=== PATIENT | female | born 1935 | race Caucasian/White ===

== ENCOUNTER → 2017-02-01 | Outpatient (CLI) | payer MEDICARE | END | disposition home or self-care (01) | LOC: GMAB 10:18 | PROVIDERS: ATTEND Family Medicine | DX: E11.9 Type 2 diabetes mellitus without complications (principal); I10 Essential (primary) hypertension; E53.8 Deficiency of other specified B group vitamins ==

== ENCOUNTER → 2017-03-03 | Outpatient (CLI) | payer MEDICARE | END | disposition home or self-care (01) | LOC: GMAB 12:41 | PROVIDERS: ATTEND Family Medicine | DX: D50.9 Iron deficiency anemia, unspecified (principal) ==

== ENCOUNTER → 2017-06-23 | Outpatient (CLI) | payer MEDICARE | END | disposition home or self-care (01) | LOC: GMAB 10:24 | PROVIDERS: ATTEND Family Medicine | DX: D50.9 Iron deficiency anemia, unspecified (principal) ==

== ENCOUNTER → 2017-10-17 | Outpatient (CLI) | payer MEDICARE | END | disposition home or self-care (01) | LOC: GMAB 17:32 | PROVIDERS: ATTEND Family Medicine | DX: N39.0 Urinary tract infection, site not specified (principal) ==

== ENCOUNTER → 2018-01-29 | Outpatient (CLI) | payer MEDICARE | LOC: GMAB 11:32 | PROVIDERS: ATTEND Family Medicine | DX: D50.9 Iron deficiency anemia, unspecified (principal); E53.8 Deficiency of other specified B group vitamins; E11.9 Type 2 diabetes mellitus without complications; I10 Essential (primary) hypertension ==

== ENCOUNTER → 2018-06-27 | Outpatient (CLI) | payer MEDICARE | LOC: GMAE 12:07 | PROVIDERS: ATTEND Family Medicine | DX: D50.9 Iron deficiency anemia, unspecified (principal); E53.8 Deficiency of other specified B group vitamins ==

== ENCOUNTER 2019-01-19 18:52 | Emergency (ER) | payer MEDICARE ==
[2019-01-19] MEDS ORDERED: IBUPROFEN 200 MG TAB PO ONE (19:20)
[2019-01-19] MEDS ORDERED: OSELTAMIVIR 75 MG CAP PO ONE (19:23)
--- NOTE | 2019-01-19 19:44 | RAD ---
EXAM DESCRIPTION: Chest,2 Views CLINICAL HISTORY: 83 years Female cough, fever COMPARISON: 10/17/2017. FINDINGS: The cardiomediastinal silhouette appears unremarkable. There are mitral annular calcifications. Atherosclerotic calcifications in the thoracic aorta. No consolidating infiltrates or pleural effusions. No pneumothorax. IMPRESSION: No acute abnormality is identified. Electronically signed by: Rohith Squires MD 01/19/2019 7:41 PM [employer]
[2019-01-19] MEDS ORDERED: AMOXICILLIN & POT CLAVULANATE 875 MG TAB PO ONE (19:47)
[2019-01-19] MEDS ORDERED: AZITHROMYCIN 250 MG TAB PO ONE (19:49)
--- NOTE | 2019-01-19 19:50 | ED.PDOC ---
History of Present Illness - General Chief Complaint: Respiratory Problem Stated Complaint: fever, cough Time Seen by Provider: 01/19/19 19:02 Source: patient Exam Limitations: no limitations - History of Present Illness Initial Comments: The patient is an 83-year-old female presenting to the emergency room secondary to runny nose or throat cough headache generalized body aches the last 24 hours. She has been exposed to multiple children with influenza. She has not been on any prophylaxis. She actually just completed a course of amoxicillin 2 days ago for an infected tooth. No respiratory distress. No hypoxia. She does have a fever. Timing/Duration: 24 hours Severity: moderate Improving Factors: nothing Worsening Factors: nothing Associated Symptoms: cough, fever/chills, malaise Allergies/Adverse Reactions: Allergies NO KNOWN ALLERGY Allergy (Verified 01/19/19 19:00) Home Medications: Ambulatory Orders Aspirin [Aspirin EC] 81 mg PO DAILY 01/19/19 Azithromycin 500 mg PO DAILY #5 tab 01/19/19 Lisinopril 10 mg PO DAILY 01/19/19 Metformin HCl [Metformin HCl ER] 500 mg PO DAILY 01/19/19 Metoprolol Succinate [Metoprolol Succinate ER] 100 mg PO DAILY 01/19/19 Multiple Vitamin [Ocuvite] 1 ea PO DAILY 01/19/19 Oseltamivir Capsule [Tamiflu] 75 mg PO BID 5 Days #10 capsule 01/19/19 Simvastatin 20 mg PO DAILY 01/19/19 Review of Systems - Review of Systems Constitutional: States: chills, fever, malaise EENTM: States: nose congestion, throat pain Respiratory: States: cough. Denies: short of breath, stridor, wheezing Cardiology: States: no symptoms reported Gastrointestinal/Abdominal: States: no symptoms reported Genitourinary: States: no symptoms reported Musculoskeletal: States: see HPI - generalized myalgias Skin: States: no symptoms reported Neurological: States: headache Endocrine: States: no symptoms reported All other Systems: No Change from Baseline Past Medical History (General) - Patient Medical History Hx Seizures: No Hx Stroke: No Hx Dementia: No Hx of COPD: No Hx Cardiac Disorders: Yes - stent placement Hx Congestive Heart Failure: No Hx Hypertension: Yes Hx Thyroid Disease: No Hx Diabetes: Yes Hx Gastroesophageal Reflux: Yes Surgical History: appendectomy, Hysterectomy, other - Vaccination History Hx Influenza Vaccination: Yes Hx Pneumococcal Vaccination: Yes - Female History Patient is a Female of Child Bearing Age (10 -59 yrs old): No Family Medical History - Family History Mother Family History: Unknown Physical Exam - Physical Exam General Appearance: Alert, Comfortable, No apparent distress Eye Exam: bilateral normal Ears, Nose, Throat: hearing grossly normal, nasal congestion, pharyngeal erythema Neck: full range of motion, supple Respiratory: lungs clear, normal breath sounds, no respiratory distress, no accessory muscle use Cardiovascular/Chest: normal peripheral pulses, no edema, tachycardia Peripheral Pulses: radial,right: 2+, radial,left: 2+ Gastrointestinal/Abdominal: non tender, soft Rectal Exam: deferred Back Exam: no CVA tenderness, no vertebral tenderness Extremity: normal range of motion, non-tender, normal inspection, no pedal edema, normal capillary refill 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 She tested negative here on a rapid test however she lives in a household where multiple other people have tested positive for the flu. She is going to be covered with Desirae flu and azithromycin both given her age group, and the fact of a negative rapid flu test. She needs to keep herself well hydrated. Motrin 400 mg every 8 hours can be taken to reduce fever and body aches. ER warnings were given for any worsening. No evidence of any hypoxia or respiratory distress. Follow-up with primary care doctor next week. Departure - Departure Clinical Impression: Flu-like symptoms Disposition: Discharge to Home or Self Care Condition: Fair Departure Forms: ED Discharge - Pt. Copy, Patient Portal Self Enrollment Instructions: Flu, Adult (DC) Diet: regular diet Activity: increase activity as tolerated Referrals: DAKOTA DUNN MD [Primary Care Provider] - 1-5 Days Prescriptions: Azithromycin 500 mg PO DAILY #5 tab Oseltamivir Capsule [Tamiflu] 75 mg PO BID 5 Days #10 capsule Home Medications: Ambulatory Orders Aspirin [Aspirin EC] 81 mg PO DAILY 02/23/19 Azithromycin 500 mg PO DAILY #5 tab 01/19/19 Lisinopril 10 mg PO DAILY 01/19/19 Metformin HCl [Metformin HCl ER] 500 mg PO DAILY 01/19/19 Metoprolol Succinate [Metoprolol Succinate ER] 100 mg PO DAILY 01/19/19 Multiple Vitamin [Ocuvite] 1 ea PO DAILY 01/19/19 Oseltamivir Capsule [Tamiflu] 75 mg PO BID 5 Days #10 capsule 01/19/19 Simvastatin 20 mg PO DAILY 01/19/19 Additional Instructions: the patient is an 83-year-old female presenting to emergency room with symptoms that are actually most consistent with influenza. She tested negative here on a rapid test however she lives in a household where multiple other people have tested positive for the flu. She is going to be covered with Tamiflu and azithromycin both given her age group, and the fact of a negative rapid flu test. She needs to keep herself well hydrated. Motrin 400 mg every 8 hours can be taken to reduce fever and body aches. ER warnings were given for any worsening. No evidence of any hypoxia or respiratory distress. Follow-up with primary care doctor next week. The patient should also hold her simvastatin for 1 week.
[2019-01-19 20:07] VITALS: BP 116/53; TEMP 100.5; O2SAT 99
== END 2019-01-19 20:07 | disposition home or self-care (01) ==
LOC: ER 18:52
DX: J11.1 Influenza due to unidentified influenza virus with other respiratory manifestations (principal); K21.9 Gastro-esophageal reflux disease without esophagitis; I10 Essential (primary) hypertension; I51.9 Heart disease, unspecified; E11.9 Type 2 diabetes mellitus without complications; Z95.5 Presence of coronary angioplasty implant and graft; Z79.899 Other long term (current) drug therapy; Z79.82 Long term (current) use of aspirin
CPT/HCPCS: 71046; 87502; Q0144

== ENCOUNTER → 2019-03-05 | Outpatient (CLI) | payer MEDICARE | LOC: GMAE 10:30 | PROVIDERS: ATTEND Family Medicine | DX: I10 Essential (primary) hypertension (principal) ==

== ENCOUNTER → 2020-03-19 | Outpatient (CLI) | payer MEDICARE | LOC: GMAE 11:33 | PROVIDERS: ATTEND Family Medicine | DX: I10 Essential (primary) hypertension (principal); E77.9 Disorder of glycoprotein metabolism, unspecified; E78.2 Mixed hyperlipidemia ==

== ENCOUNTER 2020-08-28 08:09 | Observation (INO) | payer MEDICARE ==
[2020-08-28] MEDS ORDERED: ASPIRIN (CHEWABLE) 81 MG TAB ONE (08:18)
[2020-08-28] MEDS ORDERED: ONDANSETRON INJ 4 MG/2 ML VIAL IV ONE (08:21)
[2020-08-28] MEDS ORDERED: SODIUM CHLORIDE 0.9% (FLUSH) 10 ML SYG IV PRN ×2 (08:21→12:35)
[2020-08-28] MEDS ORDERED: ASPIRIN (CHEWABLE) 81 MG TAB PO ONE (08:25)
[2020-08-28] MEDS: NITROGLYCERIN 0.4 MG 25 EA TAB SL ONE ×2 (08:30→08:44)
--- NOTE | 2020-08-28 08:30 | ED.PDOC ---
History of Present Illness - General Chief Complaint: Chest Pain/AK Stated Complaint: chest pain Time Seen by Provider: 08/28/20 08:18 Source: patient - History of Present Illness Initial Comments: ONSET AT 0300, Severity/Quality: other - 04/05 Location: substernal Chest Pain Radiation: arms - LEFT ARM Activities at Onset: rest Prior Chest Pain/Cardiac Workup: cardiac cath - 10+ YEARS AGO, [employer] Improving Factors: nothing Worsening Factors: nothing Nitro Today/Relief: no nitro taken today Aspirin Treatment Today: no aspirin today Associated Symptoms: denies symptoms Allergies/Adverse Reactions: Allergies NO KNOWN ALLERGY Allergy (Verified 01/19/19 19:00) Home Medications: Ambulatory Orders Aspirin [Aspirin EC] 81 mg PO DAILY 01/19/19 Lisinopril 10 mg PO DAILY 01/19/19 Metformin HCl [Metformin HCl ER] 500 mg PO DAILY 01/19/19 Metoprolol Succinate [Metoprolol Succinate ER] 100 mg PO DAILY 01/19/19 Multiple Vitamin [Ocuvite] 1 ea PO DAILY 01/19/19 Simvastatin 20 mg PO DAILY 01/19/19 Review of Systems - Review of Systems Constitutional: Denies: no symptoms reported, chills, fever EENTM: States: no symptoms reported. Denies: throat pain Respiratory: States: no symptoms reported. Denies: short of breath Gastrointestinal/Abdominal: States: no symptoms reported. Denies: nausea Genitourinary: States: no symptoms reported Musculoskeletal: States: no symptoms reported Skin: States: no symptoms reported Neurological: States: no symptoms reported Endocrine: States: no symptoms reported Hematologic/Lymphatic: States: no symptoms reported Past Medical History (General) - Patient Medical History Hx Seizures: No Hx Stroke: No Hx Dementia: No Hx of COPD: No Hx Cardiac Disorders: Yes - stent placement Hx Congestive Heart Failure: No Hx Hypertension: Yes Hx Thyroid Disease: No Hx Diabetes: Yes Hx Gastroesophageal Reflux: Yes Surgical History: Hysterectomy - Vaccination History Hx Influenza Vaccination: Yes - 2019 Hx Pneumococcal Vaccination: Yes - Social History Hx Tobacco Use: No Family Medical History - Family History Mother Family History: Unknown Physical Exam - Physical Exam General Appearance: Alert, Comfortable, Well Developed, Well Groomed, Well Hydrated, Well Nourished Neck: non-tender, full range of motion, supple Respiratory: chest non-tender, lungs clear, normal breath sounds, no respiratory distress Cardiovascular/Chest: normal peripheral pulses, regular rate, rhythm, no edema, no gallop, no JVD, no murmur Peripheral Pulses: radial,right: 2+, radial,left: 2+, posterior tibialis,right: 2+, posterior tibialis,left: 2+ Gastrointestinal/Abdominal: normal bowel sounds, non tender, soft, no organomegaly Extremity: non-tender, normal inspection, no pedal edema, no calf tenderness 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 SUBTLE ST DEPRESSION II, III,?AVF. NO STEMI, #2. 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 Copy, Patient Portal Self Enrollment Instructions: DI for Chest Pain Referrals: DAKOTA DUNN MD [Primary Care Provider] - 1-2 Weeks Home Medications: Ambulatory Orders Aspirin [Aspirin EC] 81 mg PO DAILY 01/19/19 Lisinopril 10 mg PO DAILY 01/19/19 Metformin HCl [Metformin HCl ER] 500 mg PO DAILY 01/19/19 Metoprolol Succinate [Metoprolol Succinate ER] 100 mg PO DAILY 01/19/19 Multiple Vitamin [Ocuvite] 1 ea PO DAILY 01/19/19 Simvastatin 20 mg PO DAILY 01/19/19 Decision To Admit - Decistion To Admit Decision to Admit Reason: Medical Nature - CHEST PAIN OF POSSIBLE CARDIAC ORIGIN Decision to Admit Date: 08/28/20 Decision to Admit Time: 11:02 - DISCUSSED WITH MARCELA MANNING, WILL ADMIT FOR OBSERVATION.
--- NOTE | 2020-08-28 09:02 | RAD ---
EXAM DESCRIPTION: Chest,1 View CLINICAL HISTORY: 85 years Female, chest pain COMPARISON: 01/19/2019 TECHNIQUE: Single view radiograph of the chest. IMPRESSION: Normal size cardiac silhouette. Partially calcified aorta. Right greater than left scattered basal atelectasis. No pleural effusion or pneumothorax. Thoracic spondylosis with ex curvature of the midthoracic spine as before. Moderate right shoulder arthropathy. Electronically signed by: Wilver Grove MD 08/28/2020 9:01 AM CDT
[2020-08-28] MEDS ORDERED: NITROGLYCERIN 0.4 MG 25 EA TAB SL PRN (12:35)
[2020-08-28] MEDS ORDERED: ACETAMINOPHEN 325 MG TAB PO PRN (12:35)
[2020-08-28] MEDS ORDERED: MORPHINE SULFATE INJ 10 MG/ML VIAL IV PRN (12:35)
[2020-08-28] MEDS ORDERED: IV SET AND CAP CHANGE INJ INJ SCH (13:00)
[2020-08-28] MEDS ORDERED: METOPROLOL SUCCINATE XL 50 MG TAB PO ONE (15:02)
[2020-08-28] MEDS ORDERED: SIMVASTATIN 20 MG TAB ONE (18:54)
[2020-08-28] MEDS ORDERED: ENOXAPARIN SODIUM 40 MG/0.4 ML SYG SUBCU ONE (18:54)
[2020-08-28] MEDS: SODIUM CHLORIDE 0.9% (FLUSH) 10 ML SYG IV SCH (20:25)
[2020-08-28] MEDS ORDERED: SIMVASTATIN 20 MG TAB PO SCH (21:00)
[2020-08-28] MEDS ORDERED: ENOXAPARIN SODIUM 40 MG/0.4 ML SYG SUBCU SCH (21:00)
[2020-08-29] MEDS ORDERED: NITROGLYCERIN 0.2 MG/HR PATCH TD ONE ×2 (02:52→02:56)
[2020-08-29] MEDS ORDERED: PANTOPRAZOLE SODIUM TAB 40 MG PO ONE (05:21)
[2020-08-29] MEDS ORDERED: PANTOPRAZOLE SODIUM TAB 40 MG PO SCH (06:30)
[2020-08-29] MEDS ORDERED: METOPROLOL SUCCINATE XL 100 MG TAB PO SCH (09:00)
[2020-08-29] MEDS ORDERED: ASPIRIN TABLET 325 MG TAB PO SCH (09:00)
[2020-08-29] MEDS ORDERED: ASPIRIN (ENTERIC COATED) 81 MG TAB PO SCH (09:00)
[2020-08-29] MEDS ORDERED: metFORMIN XR 500 MG TAB.ER.24 PO SCH (09:00)
[2020-08-29] MEDS ORDERED: LISINOPRIL 10 MG TAB PO SCH (09:00)
[2020-08-29] MEDS: SODIUM CHLORIDE 0.9% (FLUSH) 10 ML SYG IV SCH (09:59)
[2020-08-29 14:27] VITALS: BP 120/61; TEMP 98.3; O2SAT 98
--- NOTE | 2020-09-03 13:52 | SSS ---
SUPERVISING PHYSICIAN: Dorcas Miguel MD DATE OF ADMISSION: 08/28/20 DATE OF DISCHARGE: 08/29/20 DISCHARGE DIAGNOSIS; 1. Chest pain, rule out acute coronary syndrome with multiple elevated troponins outside of the three troponins on the chest pain guidelines. There were no other signs and symptoms of myocardial infarction. 2. Coronary artery disease. 3. Diabetes mellitus, type 2. 4. Hyperlipidemia. 5. Gastroesophageal reflux disease. HISTORY OF PRESENT ILLNESS: This is an 85-year-old female patient who presented to the Emergency Room with complaints of midsternal chest pain. Most of the pain was substernal and radiated to the left arm. 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 There were no other significant symptoms. After she presented to the Emergency Room, her chest pain was alleviated. Her initial vital signs were temperature 97, heart rate 87, blood pressure 121/74, respiratory rate 16, O2 saturation 94%. Her labs showed a CBC that was unremarkable with a chemistry that showed her electrolytes to be within normal limits. Glucose was elevated at 225. Her creatinine kinase was 99, CK-MB 3, troponin less than 0.02. BNP 38.1. Two hours after her initial cardiac enzymes, her troponin was less than 0.02. There were no changes on her EKG and she was admitted to the hospital in stable condition. HOSPITAL COURSE: The patient has no further complaints of chest pain. It is to be noted that her third cardiac enzymes went up to 0.09 and a subsequent one went up to 0.14. There were no complaints of chest pain, nor were there any changes on her EKG. It was normal sinus rhythm on the monitor. She then had a series of troponins that were completed. They did start to trend down, at 0.13, 0.11 and 0.1 respectively. The following morning, her laboratory was unremarkable and after discussing with her primary care physician, Dr. Miguel, an echocardiogram was ordered and she will be discharged home in stable condition. PAST MEDICAL HISTORY: 1. Coronary artery disease. 2. Diabetes mellitus, type 2. 3. Gastroesophageal reflux disease. 4. Hyperlipidemia. 5. Pernicious anemia. PAST SURGICAL HISTORY: None. ALLERGIES: NO KNOWN DRUG ALLERGIES. SOCIAL HISTORY: She lives in [place]. There is no history of ETOH, tobacco or illicit drug use. REVIEW OF SYSTEMS: Negative except as per history of present illness. PHYSICAL EXAMINATION: VITAL SIGNS: Temperature 98.3, heart rate 75, blood pressure 120/61, respiratory rate 16, O2 saturation 98% on room air. GENERAL: This is an 85-year-old female patient who looks younger than her stated age. She is in no acute distress. HEENT: Normocephalic, atraumatic. Pupils are equal and reactive. Oropharynx is clear. NECK: Supple without mass. RESPIRATORY: Essentially clear to auscultation bilaterally. CHEST: There is equal rise and fall of the chest with inspiration and expiration. CARDIOVASCULAR: Regular rate and rhythm. GASTROINTESTINAL: Abdomen is soft, nondistended, nontender. Bowel sounds are positive. NEUROLOGIC: Awake, alert and oriented times three. Cranial nerves II-XII are grossly intact as tested. SKIN: Warm and dry. LABORATORY: Labs as per history of present illness. RADIOLOGY: Chest x-ray shows normal sized cardiac silhouette, partially calcified aorta, right greater than left scattered basilar atelectasis. No pleural effusion or pneumothorax. Thoracic spondylosis with curvature of the mid thoracic spine. Moderate right shoulder arthropathy. Her echocardiogram shows 1) Left ventricular ejection fraction estimated at 55-60%. 2) There is mild concentric left ventricular hypertrophy. 3) Severe mitral annular calcification. 4) Mild mitral stenosis. 5) Mild left atrial enlargement. DISCHARGE PLAN: The patient will be discharged home in stable condition. She will have close followup with her primary care physician, Dr. Miguel. No new medications were started and she is to continue her previous medications as prescribed. She is to return to the hospital or followup with Dr. Miguel for any problems or complications. DISCHARGE MEDICATIONS: 1. Simvastatin. 2. Metoprolol. 3. Lisinopril. 4. Ocuvite. 5. Metformin. 6. Aspirin. #[id number] [facility]
== END 2020-08-29 15:40 | disposition home or self-care (01) ==
LOC: ER 08:09 → MS 11:09
PROVIDERS: ADMIT Nurse Practitioner Acute Care; ATTEND Nurse Practitioner Acute Care
DX: R07.2 Precordial pain (principal); I25.10 Atherosclerotic heart disease of native coronary artery without angina pectoris; E11.9 Type 2 diabetes mellitus without complications; E78.5 Hyperlipidemia, unspecified; K21.9 Gastro-esophageal reflux disease without esophagitis; I49.1 Atrial premature depolarization; I45.10 Unspecified right bundle-branch block; I05.2 Rheumatic mitral stenosis with insufficiency; I37.1 Nonrheumatic pulmonary valve insufficiency; Z95.5 Presence of coronary angioplasty implant and graft; Z79.84 Long term (current) use of oral hypoglycemic drugs; Z79.82 Long term (current) use of aspirin; Z79.899 Other long term (current) drug therapy
CPT/HCPCS: 96374; 96372; J2405; J1650; A4216 ×2; 82553 ×3; 80053; 80061; 36415 ×5; 82550 ×3; 80048; 85025 ×2; 85730; 85610; 84484 ×8; 83880; 71045; 94760 ×2; 99285; 93306; 93005 ×3; G0378

== ENCOUNTER → 2020-09-15 | Outpatient (CLI) | payer MEDICARE | LOC: GMAE 10:44 | PROVIDERS: ATTEND Family Medicine | DX: R94.6 Abnormal results of thyroid function studies (principal) ==

== ENCOUNTER 2020-09-30 14:20 | Emergency (ER) | payer MEDICARE ==
--- NOTE | 2020-09-30 14:33 | ED.PDOC ---
History of Present Illness - General Time Seen by Provider: 09/30/20 14:29 Source: patient, RN notes reviewed, Vital Signs reviewed Additional Information: 85-year-old male presented to the ER because of chest pain. Patient said that she woke up this morning had a brief sensation of chest tightness that lasted less than 5 minutes, with slight shortness of breath. Patient denies any nausea vomiting dizziness lightheadedness, the patient pain went away on its own. Other: Patient denies any symptoms, patient does have a history of coronary disease with 2 stents, patient has not had a stress test in more than 10 years, patient was seen here last month for a chest pain episode when she was admitted overnight. Patient called her doctor and she was sent here for a cardiac evaluation. Asymptomatic at the moment - History of Present Illness Timing/Duration: other - this morning Severity/Quality: mild Location: substernal Chest Pain Radiation: no radiation Activities at Onset: none Prior Chest Pain/Cardiac Workup: cardiac cath, stress test, other Improving Factors: other - spontaneous Nitro Today/Relief: no nitro taken today Aspirin Treatment Today: no aspirin today Associated Symptoms: denies symptoms Allergies/Adverse Reactions: Allergies NO KNOWN ALLERGY Allergy (Verified 01/19/19 19:00) Home Medications: Ambulatory Orders Aspirin [Aspirin EC] 81 mg PO DAILY 01/19/19 Lisinopril 10 mg PO DAILY 01/19/19 Metformin HCl [Metformin Hydrochloride E] 500 mg PO DAILY 01/19/19 Metoprolol Succinate [Metoprolol Succinate ER] 100 mg PO DAILY 01/19/19 Multiple Vitamin [Ocuvite] 1 ea PO DAILY 01/19/19 Simvastatin 20 mg PO DAILY 01/19/19 Review of Systems - Review of Systems Constitutional: States: no symptoms reported EENTM: States: no symptoms reported Respiratory: States: short of breath Cardiology: States: chest pain Gastrointestinal/Abdominal: States: no symptoms reported Genitourinary: States: no symptoms reported Musculoskeletal: States: no symptoms reported Skin: States: no symptoms reported Neurological: States: no symptoms reported Endocrine: States: no symptoms reported Hematologic/Lymphatic: States: no symptoms reported Past Medical History (General) - Patient Medical History Hx Seizures: No Hx Stroke: No Hx Dementia: No Hx Asthma: No Hx of COPD: No Hx Cardiac Disorders: Yes - stent placement Hx Congestive Heart Failure: No Hx Pacemaker: No Hx Hypertension: Yes Hx Thyroid Disease: No Hx Diabetes: Yes Hx Gastroesophageal Reflux: Yes Hx MRSA: No - Vaccination History Hx Influenza Vaccination: Yes - 2020 Hx Pneumococcal Vaccination: Yes - Social History Hx Tobacco Use: No Hx Alcohol Use: No Hx Substance Use: No Hx Physical Abuse: No Hx Emotional Abuse: No Family Medical History - Family History Mother Family History: Unknown Physical Exam - Physical Exam General Appearance: Well Developed, Well Groomed, Well Hydrated, Well Nourished Eyes, Ears, Nose, Throat Exam: PERRL/EOMI, normal ENT inspection, TMs normal, pharynx normal Neck: non-tender, full range of motion, supple, normal inspection Respiratory: chest non-tender, lungs clear, normal breath sounds, no respiratory distress, no accessory muscle use Cardiovascular/Chest: normal peripheral pulses, regular rate, rhythm, no edema, no gallop, no JVD, no murmur Peripheral Pulses: radial,right: 2+, radial,left: 2+ Gastrointestinal/Abdominal: normal bowel sounds, non tender, soft, no organomegaly, no pulsatile mass Extremity: normal range of motion, non-tender, normal inspection, no pedal edema, no calf tenderness 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 Has had 2 stents in the past, patient arrived in the ER without any complaints no chest pain or shortness of breath, her EKG did not show any evidence of acute ischemic changes, chest x-ray did not show any evidence of pneumonia, no evidence of fluid overload, no evidence of widened mediastinum to suggest aortic dissection. 2 set of troponins that were negative. I will run case with patient's PCP determine whether the patient will be discharged home and follow-up with a rn diabetes as an outpatient the patient will be admitted to the facility for a observation. Denies any chest pain abdominal pain stress if ultimately this patient is discharge home the she will be instructed to return to the ER immediately with any chest pressure, nausea, vomiting, shor tness of breath dizziness lightheadedness sensation of fainting excessive sweating tingling sensation in the chest with radiation to the left arm right arm neck back or jaw crushing chest pain rating to the back or any other concern 09/30/20 16:54 09/30/20 17:27 I tried numerous times to get in touch with the primary care physician but no answer , family decided they want to wait any longer and will go home, Departure - Departure Clinical Impression: Chest pain Qualifiers: Chest pain type: unspecified Qualified Code(s): R07.9 - Chest pain, unspecified Disposition: Discharge to Home or Self Care Condition: Fair Referrals: DAKOTA DUNN MD [Primary Care Provider] - 1-2 Weeks Home Medications: Ambulatory Orders Aspirin [Aspirin EC] 81 mg PO DAILY 01/19/19 Lisinopril 10 mg PO DAILY 01/19/19 Metformin HCl [Metformin Hydrochloride E] 500 mg PO DAILY 01/19/19 Metoprolol Succinate [Metoprolol Succinate ER] 100 mg PO DAILY 01/19/19 Multiple Vitamin [Ocuvite] 1 ea PO DAILY 01/19/19 Simvastatin 20 mg PO DAILY 01/19/19 Additional Instructions: return to the ER immediately with any chest pressure, nausea, vomiting, shortness of breath dizziness lightheadedness sensation of fainting excessive sweating tingling sensation in the chest with radiation to the left arm right arm neck back or jaw crushing chest pain rating to the back or any other concern
--- NOTE | 2020-09-30 15:13 | RAD ---
Study: Single Frontal Radiograph of the Chest. Indication:chest pain Comparison: August 2020 Impression: Heart size normal. Atherosclerosis aorta. Mild interstitial prominence appears stable and likely reflects chronic interstitial scarring. No consolidation, pleural effusion, pneumothorax. Electronically signed by: Mamadou Garcia MD 09/30/2020 3:12 PM [facility]
[2020-09-30] MEDS ORDERED: ASPIRIN (CHEWABLE) 81 MG TAB PO ONE (15:58)
[2020-09-30 18:44] VITALS: TEMP 97.2; O2SAT 98
[2020-09-30 18:48] VITALS: BP 137/67
== END 2020-09-30 17:40 | disposition home or self-care (01) ==
LOC: ER 14:20
DX: R07.89 Other chest pain (principal); R06.02 Shortness of breath; K21.9 Gastro-esophageal reflux disease without esophagitis; I10 Essential (primary) hypertension; E11.9 Type 2 diabetes mellitus without complications; I51.9 Heart disease, unspecified; Z95.5 Presence of coronary angioplasty implant and graft; Z79.899 Other long term (current) drug therapy; Z79.84 Long term (current) use of oral hypoglycemic drugs; Z79.82 Long term (current) use of aspirin

== ENCOUNTER 2020-12-24 18:35 | Emergency (ER) | payer MEDICARE ==
[2020-12-24] MEDS ORDERED: ONDANSETRON INJ 4 MG/2 ML VIAL ONE ×2 (18:45→19:11)
[2020-12-24] MEDS ORDERED: SODIUM CHLORIDE 0.9% (FLUSH) 10 ML SYG IV PRN (18:50)
--- NOTE | 2020-12-24 18:54 | ED.PDOC ---
History of Present Illness - General Chief Complaint: Neuro Symptoms/Deficits Time Seen by Provider: 12/24/20 18:49 Source: patient, family Exam Limitations: other - Vomiting - History of Present Illness Initial Comments: Daughter of patient reports that her mother developed vomiting about 20 minutes prior to admission. She stated that the patient had some temporary garbled speech which is now resolved. Current speech is normal for patient. Patient did not have any facial Newdroop or extremity weakness. 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 Patient has no prior history of CVA. The patient complains of severe dizziness which she cannot differentiate between lightheadedness or vertigo. Patient Also complains of a severe headache. Timing/Duration: 1/2 hour Severity: severe Improving Factors: nothing Worsening Factors: nothing Associated Symptoms: nausea/vomiting Allergies/Adverse Reactions: Allergies NO KNOWN ALLERGY Allergy (Verified 01/19/19 19:00) Home Medications: Ambulatory Orders Aspirin [Aspirin EC] 81 mg PO DAILY 01/19/19 Lisinopril 10 mg PO DAILY 01/19/19 Metformin HCl [Metformin Hydrochloride E] 500 mg PO DAILY 01/19/19 Metoprolol Succinate [Metoprolol Succinate ER] 100 mg PO DAILY 01/19/19 Multiple Vitamin [Ocuvite] 1 ea PO DAILY 01/19/19 Simvastatin 20 mg PO DAILY 01/19/19 Review of Systems - Review of Systems Constitutional: States: no symptoms reported EENTM: States: no symptoms reported Respiratory: States: no symptoms reported Cardiology: States: no symptoms reported Gastrointestinal/Abdominal: States: vomiting Genitourinary: States: no symptoms reported Musculoskeletal: States: no symptoms reported Neurological: States: see HPI, headache Endocrine: States: no symptoms reported Hematologic/Lymphatic: States: no symptoms reported Past Medical History (General) - Patient Medical History Hx Seizures: No Hx Stroke: No Hx Dementia: No Hx Asthma: No Hx of COPD: No Hx Cardiac Disorders: Yes - stent placement Hx Congestive Heart Failure: No Hx Pacemaker: No Hx Hypertension: Yes Hx Thyroid Disease: No Hx Diabetes: Yes Hx Gastroesophageal Reflux: Yes Hx MRSA: No - Vaccination History Hx Influenza Vaccination: Yes - 2020 Hx Pneumococcal Vaccination: Yes - Social History Hx Tobacco Use: No Hx Alcohol Use: No Hx Substance Use: No Hx Physical Abuse: No Hx Emotional Abuse: No Family Medical History - Family History Mother Family History: Unknown Physical Exam - Physical Exam General Appearance: Agitated, Alert, Other - Vomiting frequently Eye Exam: bilateral normal ENT Exam: normal ENT inspection Neck: non-tender, full range of motion Respiratory: chest non-tender Cardiovascular/Chest: regular rate, rhythm Gastrointestinal/Abdominal: normal bowel sounds, non tender, soft Back Exam: normal inspection, no vertebral tenderness Extremities Exam: non-tender, no evidence of injury Mental Status: alert, 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 NIH stroke scale score of 2.Patient would not cooperate forBest language testing due to recurrent vomiting. Patient appeared to have severe vertigo with initiation of vomiting anytime she moved her head to the right or left. Coordination/Gait: ABN nose to finger (R), ABN nose to finger (L) Motor/Sensory: no motor deficit, no sensory deficit, no pronator drift, other - No leg drift right or left Progress - Progress Progress: 12/24/20 20:[address] Dinh, Emergency department attending physician at [facility]: She agreed to accept the patient in transfer. Medical decision makin-year-old female with no prior history of stroke presenting to the emergency department with a 20-minute history of nausea and vomiting, headache, and briefly garbled speech. The patient showed apparent vertigo with severe nausea And vomiting anytime she moved her head. She did appear to have some limb Ataxia, particularly in the lower extremities. Patient did not have slurred speech facial droop or extremity weakness. Patient clinically presents like a posterior CVA. Neurology cardiology consultant after doing tele- neurology Examined consultation recommended administration of TPA.Patient is to be transferred to [facility] by helicopter for emergency department to emergency department transfer for continuation of care. 12/24/20 20:54 Awaiting air transport. Patient remains alert But continues to vomit.Promethazine 6.25 mg IV ordered. - Results/Orders Results/Orders: Patient had recurrent emesis anytime she moved her head. This was treated with 4 mg of Zofran IV x2. Eventually vomiting was controlled. Tele Allergy consult ordered at 7:22 PM. Discussed the Patient in detail with Dr. More, neurologist on-call for [facility] 7:48 PM: He strongly suspects a posteriors stroke. He recommends TPA be given. He consented theThe patient and her mother during his consultation and they were in agreement with the therapy. The neurologist recommended a CTA with contrast to follow the TPA infusion. At 8:03 PM blood pressure was 148/57, pulse 64. The patient was asleep but easily arousable. She did not have the severe vertigo and vomiting which she exhibited on initial presentation. The Indications for TPA were discussed with the patient and her mother.The potential for bleeding and deterioration with possible was also explained to them and they are willing to undergo the treatment. At 8:16 PM an order was placed forA TPA bolus of 5.4 mg over 1 minute with a infusion of 50 mg over 1 hour to follow. 12/24/20 18:50 IV Care:Saline Lock per Protoc QSHIFT Telemetry .ONCE Sodium Chloride 0.9% (Flush) [Saline Flush Syringe] 10 ml IV PRN PRN 12/24/20 19:00 EKG STAT Laboratory Results - last 24 hr 12/24/20 12/24/20 12/24/20 18:54 18:54 18:54 WBC 8.8 RBC 3.88 L Hgb 10.9 L Hct 32.5 L MCV 83.8 MCH 28.1 MCHC 33.5 RDW 14.8 H Plt Count 435 H MPV 7.6 Absolute Neuts (auto) 5.30 Absolute Lymphs (auto) 2.40 Absolute Monos (auto) 0.70 Absolute Eos (auto) 0.30 Absolute Basos (auto) 0.10 Neutrophils % 60.5 Lymphocytes % 27.2 Monocytes % 8.0 Eosinophils % 2.9 Basophils % 1.4 PT 11.2 H INR 1.13 PTT (SP) 26.7 Sodium 138 Potassium 4.4 Chloride 105 Carbon Dioxide 24 Anion Gap 13.4 BUN 23 H Creatinine 1.10 BUN/Creatinine Ratio 20.9 H POC Glucose Random Glucose 175 H Serum Osmolality 283.6 Calcium 8.5 Total Bilirubin 0.7 AST 16 ALT 12 Alkaline Phosphatase 80 Creatine Kinase 123 CK-MB (CK-2) 5.0 H* CK-MB (CK-2) % 4.07 Troponin I < 0.02 Serum Total Protein 7.4 Albumin 4.2 Globulin 3.2 Albumin/Globulin Ratio 1.3 12/24/20 18:54 WBC RBC Hgb Hct MCV MCH MCHC RDW Plt Count MPV Absolute Neuts (auto) Absolute Lymphs (auto) Absolute Monos (auto) Absolute Eos (auto) Absolute Basos (auto) Neutrophils % Lymphocytes % Monocytes % Eosinophils % Basophils % PT INR PTT (SP) Sodium Potassium Chloride Carbon Dioxide Anion Gap BUN Creatinine BUN/Creatinine Ratio POC Glucose 162 H Random Glucose Serum Osmolality Calcium Total Bilirubin AST ALT Alkaline Phosphatase Creatine Kinase CK-MB (CK-2) CK-MB (CK-2) % Troponin I Serum Total Protein Albumin Globulin Albumin/Globulin Ratio EXAM: Chest,1 View CLINICAL INDICATION: Stroke COMPARISON: 09/30/2020 FINDINGS: A single view of the chest was obtained. Atherosclerotic calcifications are noted involving the aorta. The heart size is normal. The pulmonary vascularity is unremarkable. The lungs are clear. There is no consolidation, infiltrate, pleural effusion, or pneumothorax. IMPRESSION: No evidence of active pulmonary disease. Electronically signed by: Otis Mccord MD 12/24/2020 7:23 PM MANAGER OF SALES ADDENDUM #1 Findings were discussed with Dr. Lara 12/24/2020 1940 hours. Electronically signed by: Anahi Romero MD 12/24/2020 7:42 PM MANAGER OF SALES ORIGINAL REPORT EXAM: Head CLINICAL INDICATION: 85-year-old female with possible stroke. COMPARISON: No prior imaging is available for comparison. TECHNIQUE: CT brain without contrast. This exam was performed according to our departmental dose optimization program which includes use of automated exposure control, adjustment of the mA and/or kV according to patient size and/or use of iterative reconstruction technique. FINDINGS: Multifocal regions of patchy hypoattenuation are present in a subcortical and periventricular deep white matter distribution, nonspecific; however, most likely represent small vessel ischemic disease, age indeterminate. The ventricles, and sulci are prominent compatible with underlying volume loss. The perdue-white matter differentiation is preserved. There is no mass effect, midline shift, intra- or extra-axial fluid collection/acute hemorrhage. The osseous structures are unremarkable. The paranasal sinuses and mastoid air cells are clear. IMPRESSION: 1. No acute intracranial abnormalities. Nonspecific white matter change most likely small vessel ischemic disease, age indeterminate. 2. CT is insensitive for early evaluation of acute stroke. If there is clinical concern for acute ischemia, an MRI may be considered. Electronically signed by: Anahi Romero MD 12/24/2020 7:20 PM [facility] - [id number] ADDENDUM EXAM: Head CLINICAL INDICATION: 85-year-old female with possible stroke. COMPARISON: No prior imaging is available for comparison. TECHNIQUE: CT brain without contrast. This exam was performed according to our departmental dose optimization program which includes use of automated exposure control, adjustment of the mA and/or kV according to patient size and/or use of iterative reconstruction technique. FINDINGS: Multifocal regions of patchy hypoattenuation are present in a subcortical and periventricular deep white matter distribution, nonspecific; however, most likely represent small vessel ischemic disease, age indeterminate. The ventricles, and sulci are prominent compatible with underlying volume loss. The perdue-white matter differentiation is preserved. There is no mass effect, midline shift, intra- or extra-axial fluid collection/acute hemorrhage. The osseous structures are unremarkable. The paranasal sinuses and mastoid air cells are clear. IMPRESSION: 1. No acute intracranial abnormalities. Nonspecific white matter change most likely small vessel ischemic disease, age indeterminate. 2. CT is insensitive for early evaluation of acute stroke. If there is clinical concern for acute ischemia, an MRI may be considered. Electronically signed by: Anahi Romero MD 12/24/2020 7:20 PM [facility] COVID-19 nasopharyngeal rapid swab negative. Electrocardiogram normal sinus rhythm, 74/min, right bundle branch block, no acute STT changes. 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 Intractable vomiting. Disposition: Discharge to Home or Self Care Condition: Fair Departure Forms: ED Discharge - Pt. Copy, Patient Portal Self Enrollment Referrals: DAKOTA DUNN MD [Primary Care Provider] - 1-2 Weeks Home Medications: Ambulatory Orders Aspirin [Aspirin EC] 81 mg PO DAILY 01/19/19 Lisinopril 10 mg PO DAILY 01/19/19 Metformin HCl [Metformin Hydrochloride E] 500 mg PO DAILY 01/19/19 Metoprolol Succinate [Metoprolol Succinate ER] 100 mg PO DAILY 01/19/19 Multiple Vitamin [Ocuvite] 1 ea PO DAILY 01/19/19 Simvastatin 20 mg PO DAILY 01/19/19 Transfer to Outside Facility - Transfer Information Decision to Transfer Date: 12/24/20 Decision to Transfer Time: 20:20 Reason for Transfer: required specialist not available Accepting Facility: [facility]
[2020-12-24] MEDS ORDERED: ONDANSETRON INJ 4 MG/2 ML VIAL IV ONE (19:10)
--- NOTE | 2020-12-24 19:22 | CT ---
EXAM: Head CLINICAL INDICATION: 85-year-old female with possible stroke. COMPARISON: No prior imaging is available for comparison. TECHNIQUE: CT brain without contrast. This exam was performed according to our departmental dose optimization program which includes use of automated exposure control, adjustment of the mA and/or kV according to patient size and/or use of iterative reconstruction technique. FINDINGS: Multifocal regions of patchy hypoattenuation are present in a subcortical and periventricular deep white matter distribution, nonspecific; however, most likely represent small vessel ischemic disease, age indeterminate. The ventricles, and sulci are prominent compatible with underlying volume loss. The perdue-white matter differentiation is preserved. There is no mass effect, midline shift, intra- or extra-axial fluid collection/acute hemorrhage. The osseous structures are unremarkable. The paranasal sinuses and mastoid air cells are clear. IMPRESSION: 1. No acute intracranial abnormalities. Nonspecific white matter change most likely small vessel ischemic disease, age indeterminate. 2. CT is insensitive for early evaluation of acute stroke. If there is clinical concern for acute ischemia, an MRI may be considered. Electronically signed by: Anahi Romero MD 12/24/2020 7:20 PM [facility]
--- NOTE | 2020-12-24 19:24 | RAD ---
EXAM: Chest,1 View CLINICAL INDICATION: Stroke COMPARISON: 09/30/2020 FINDINGS: A single view of the chest was obtained. Atherosclerotic calcifications are noted involving the aorta. The heart size is normal. The pulmonary vascularity is unremarkable. The lungs are clear. There is no consolidation, infiltrate, pleural effusion, or pneumothorax. IMPRESSION: No evidence of active pulmonary disease. Electronically signed by: Otis Mccord MD 12/24/2020 7:23 PM COMMISSARY REPRESENTATIVE
[2020-12-24] MEDS ORDERED: ALTEPLASE 100 MG ONE (20:08)
[2020-12-24] MEDS ORDERED: ALTEPLASE 50 MG IVS ONE (20:08)
[2020-12-24] MEDS ORDERED: ALTEPLASE 100 MG IV.SOLN IV ONE (20:12)
[2020-12-24] MEDS ORDERED: SODIUM CHLORIDE 0.9% 500ML 500 ML ONE (20:20)
[2020-12-24] MEDS ORDERED: PROMETHAZINE HCL INJ 6.25 MG in SODIUM CHLORIDE 0.9% 50ML 50 ML IVPB ONE (20:54)
[2020-12-24 22:16] VITALS: TEMP 97.2; O2SAT 98
[2020-12-24 22:19] VITALS: BP 134/60
== END 2020-12-24 21:05 | disposition short-term general hospital (02) ==
LOC: ER 18:35
DX: I63.9 Cerebral infarction, unspecified (principal); R11.2 Nausea with vomiting, unspecified; I45.10 Unspecified right bundle-branch block; I51.9 Heart disease, unspecified; I10 Essential (primary) hypertension; E11.9 Type 2 diabetes mellitus without complications; K21.9 Gastro-esophageal reflux disease without esophagitis; Z86.73 Personal history of transient ischemic attack (TIA), and cerebral infarction without residual deficits; Z95.5 Presence of coronary angioplasty implant and graft; Z79.82 Long term (current) use of aspirin; Z79.84 Long term (current) use of oral hypoglycemic drugs; Z20.822 Contact with and (suspected) exposure to COVID-19
CPT/HCPCS: 36415; 70450; 71045; 80053; 82550; 82553; 82948; 84484; 85025; 85610; 85730; 87635; 93005; A4216; J2405; J2550; J2997; J7040

== ENCOUNTER → 2021-01-04 | Outpatient (CLI) | payer MEDICARE | LOC: RESP 12:59 | PROVIDERS: ATTEND Family Medicine | DX: R00.0 Tachycardia, unspecified (principal) ==